=== PATIENT | female | born 1980 | race Caucasian/White ===

== ENCOUNTER 2018-03-09 21:10 | Emergency (ER) | payer BC ==
[2018-03-09 21:16] VITALS: BP 145/85; PULSE 90; TEMP 98.3; BMI 23.6
--- NOTE | 2018-03-09 22:10 | PDOC ---
History of Present Illness - General Chief Complaint: Sore Throat Stated Complaint: Sore Throat Time Seen by Provider: 03/09/18 21:34 History Source: Patient Exam Limitations: No Limitations - History of Present Illness Initial Comments: 03/09/18 22:08 HISTORY OF PRESENT ILLNESS: Is a 37-year-old woman without significant medical history presents emergency Department with sore throat for 2 days. Patient states she was seen in a clinic yesterday for the sore throat and told she had strep. She was placed on antibiotics but states that every time she receives oral antibiotics doesn't help but her strep throat. Patient is requesting Bicillin injection now. Patient reports subjective fevers. No recent travel or sick contacts. PAST MEDICAL HISTORY: Denies past medical history SURGICAL HISTORY: Denies ALLERGIES: No known drug allergies REVIEW OF SYSTEMS General/Constitutional: Subjective fever or chills. Denies weakness, weight change. HEENT: Denies change in vision. Denies ear pain or discharge. +sore throat. Cardiovascular: Denies chest pain or shortness of breath. Respiratory: Denies cough, wheezing, or hemoptysis. Gastrointestinal: Denies nausea, vomiting, diarrhea or constipation. Denies rectal bleeding. Genitourinary: Denies dysuria, frequency, or change in urination. Musculoskeletal: Denies joint or muscle swelling or pain. Denies neck or back pain. Skin and breasts: Denies rash or easy bruising. Neurologic: Denies headache, vertigo, loss of consciousness, or loss of sensation. Psychiatric: Denies depression or anxiety. Endocrine: Denies increased thirst. Denies abnormal weight change. Hematologic/Lymphatic: Denies anemia, easy bleeding, or history of blood clots. Allergic/Immunologic: Denies hives or skin allergy. Denies latex allergy. PHYSICAL EXAM General Appearance: Well-appearing, appropriately dressed. No apparent distress , no intoxication. HEENT: EOMI, PERRLA, Tonsillar erythema with exudates present, normal voice, TMs normal. No conjunctival pallor. No photophobia, scleral icterus. Neck: Supple. Trachea midline. No tenderness, rigidity, carotid bruit, stridor , lymphadenopathy, or thyromegaly. Respiratory/Chest: Lungs CTAB. No shortness of breath, chest tenderness, respiratory distress, accessory muscle use. No crackles, rales, rhonchi, stridor , wheezing, dullness Cardiovascular: RRR. S1, S2. No JVD, murmur, bradycardia, tachycardia. Vascular Pulses: Dorsalis-Pedis (R): 2+, Dorsalis-Pedis (L): 2+ Gastrointestinal/Abdominal: Normal bowel sounds. Abdomen soft, non-distended. No tenderness or rebound tenderness. No organomegaly, pulsatile mass, guarding, hernia, hepatomegaly, splenomegaly. Lymphatic: No adenopathy, tenderness. Musculoskeletal/Extremities: Normal inspection. FROM of all extremities, normal capillary refill. Pelvis Stable. No CVA tenderness. No tenderness to extremities, pedal edema, swelling, erythema or deformity. Integumentary: Appropriate color, dry, warm. No cyanosis, erythema, jaundice or rash Neurologic: inspector penetrant II-XII intact. Fully oriented, alert. Appropriate mood/affect. Motor strength 5/5. No appreciable EOM palsy, facial droop or sensory deficit. Past History - Past Medical History Allergies/Adverse Reactions: Allergies Allergy/AdvReac Type Severity Reaction Status Date / Time No Known Allergies Allergy Verified 03/09/18 21:16 Home Medications: Ambulatory Orders Amoxicillin - [Amoxicillin 250mg Capsule -] 250 mg PO TID 03/09/18 Ibuprofen [Motrin -] 400 mg PO QID 03/09/18 - Suicide/Smoking/Psychosocial Hx Smoking History: Never smoked Information on smoking cessation initiated: No Hx Alcohol Use: No Drug/Substance Use Hx: No *Physical Exam - Vital Signs Last Vital Signs Temp Pulse Resp BP Pulse Ox 98.3 F 90 20 145/85 99 03/09/18 21:14 03/09/18 21:14 03/09/18 21:14 03/09/18 21:14 03/09/18 21:14 Medical Decision Making - Medical Decision Making 03/09/18 22:25 A/P: 37-year-old female with sore throat for 2 days TMs clear bilaterally 2+ tonsil noted Pharyngeal erythema with tonsillar exudate present Tender anterior cervical lymphadenopathy Halitosis present Exam is consistent with a streptococcal pharyngitis. Rapid strep testing, treat pending results 03/09/18 22:39 Rapid strep testing is positive. I will treat the patient with Bicillin 1.2 million units IM now. I will hold patient here 20 minutes post injection and discharge home with has no reaction. Patient is agreement with this plan as was the plan she was seeking upon arrival. *DC/Admit/Observation/Transfer Diagnosis at time of Disposition: Strep pharyngitis - Discharge Dispostion Disposition: HOME Condition at time of disposition: Stable Decision to Admit order: No - Referrals - Patient Instructions Additional Instructions: Salt water garggles. Throw away your toothbrush in 3 days and start using a new toothbrush. No sharing of drinks, utensils or toothbrushes. Take Motrin as directed by song lyricist's instructions. Return to ED for worsening fevers, worsening sore throat, chest pain, shortness of breath or any other concerns. - Post Discharge Activity
[2018-03-09] MEDS ORDERED: PENICILLIN G BENZATHINE 1,200,000 UNIT/2 ML PFS IM ONE (22:34)
[2018-03-09] MEDS ORDERED: PENICILLIN G BENZATHINE 2,400,000 UNIT/4 ML PFS ONE (22:45)
== END 2018-03-09 23:12 | disposition home or self-care (01) ==
LOC: JERFT 21:10
DX: J02.0 Streptococcal pharyngitis (principal)
CPT/HCPCS: 87070; 87430; 96372; 99281-25

== ENCOUNTER 2018-08-15 13:52 | Emergency (ER) | payer BC ==
[2018-08-15 14:10] VITALS: BP 134/80; PULSE 61; TEMP 98.9; BMI 28.5
--- NOTE | 2018-08-15 15:44 | PDOC ---
History of Present Illness - General Chief Complaint: Sore Throat Stated Complaint: SORE THROAT Time Seen by Provider: 08/15/18 15:43 History Source: Patient Exam Limitations: No Limitations - History of Present Illness Initial Comments: 08/15/18 18:24 Patient is a 37-year-old female who presents to the ER for 2 days of sore throat. Patient states that it hurts to swallow. She has been taking over-the- counter ampicillin from the [facility] for the last 2 days. Denies fevers, chills, cough, earache, shortness of breath, difficulty breathing, nausea, vomiting and diarrhea. Past History - Travel Traveled outside of the country in the last 30 days: No Close contact w/someone who was outside of country & ill: No - Past Medical History Allergies/Adverse Reactions: Allergies Allergy/AdvReac Type Severity Reaction Status Date / Time No Known Allergies Allergy Verified 03/09/18 21:16 Home Medications: Ambulatory Orders Ampicillin Trihydrate 500 mg PO ASDIR 08/15/18 Methylprednisolone [Medrol Dose Miguel] 4 mg PO ASDIR #21 tablet 08/15/18 - Suicide/Smoking/Psychosocial Hx Smoking History: Never smoked Have you smoked in the past 12 months: No Information on smoking cessation initiated: No Hx Alcohol Use: No Drug/Substance Use Hx: No Review of Systems - Review of Systems Able to Perform ROS?: Yes Comments:: 08/15/18 17:23 CONSTITUTIONAL: Absent: fever, chills, diaphoresis, generalized weakness, malaise, loss of appetite HEENT: Present: sore throat Absent: rhinorrhea, nasal congestion, throat pain, throat swelling, difficulty swallowing, mouth swelling, ear pain, eye pain, visual Changes CARDIOVASCULAR: Absent: chest pain, loss of consciousness, palpitations, irregular heart rate, peripheral edema RESPIRATORY: Absent: cough, shortness of breath, dyspnea with exertion, orthopnea, wheezing, stridor, hemoptysis GASTROINTESTINAL: Absent: abdominal pain, abdominal distension, nausea, vomiting, diarrhea, constipation, melena, hematochezia GENITOURINARY: Absent: dysuria, frequency, urgency, hesitancy, hematuria, flank pain, genital pain MUSCULOSKELETAL: Absent: myalgia, arthralgia, joint swelling SKIN: Absent: rash, itching, pallor HEMATOLOGIC/IMMUNOLOGIC: Absent: easy bleeding, easy bruising, lymphadenopathy, frequent infections ENDOCRINE: Absent: unexplained weight gain, unexplained weight loss, heat intolerance, cold intolerance NEUROLOGIC: Absent: headache, focal weakness or paresthesias, dizziness, unsteady gait, seizure, mental status changes, bladder or bowel incontinence PSYCHIATRIC: Absent: anxiety, depression, suicidal or homicidal ideation, hallucinations. Is the patient limited Turkish proficient: No *Physical Exam - Vital Signs Last Vital Signs Temp Pulse Resp BP Pulse Ox 98.9 F 61 20 134/80 99 08/15/18 14:07 08/15/18 14:07 08/15/18 14:07 08/15/18 14:07 08/15/18 14:07 - Physical Exam Comments: 08/15/18 17:31 GENERAL: Well developed, well nourished. Awake and alert. No acute distress. HEENT: Normocephalic, atraumatic. PERRLA, EOMI. No conjunctival pallor. Sclera are non- icteric. Moist mucous membranes. Oropharynx is with erythema and exudates to the tonsils. Uvula is midline. No edema NECK: Supple. Full ROM. No JVD. Carotid pulses 2+ and symmetric, without bruits. No thyromegaly. No lymphadenopathy. CARDIOVASCULAR: Regular rate and rhythm. No murmurs, rubs, or gallops. Distal pulses are 2+ and symmetric. PULMONARY: No evidence of respiratory distress. Lungs clear to auscultation bilaterally. No wheezing, rales or rhonchi. SKIN: Warm and dry. Normal capillary refill. No rashes. No jaundice. NEUROLOGICAL: Alert, awake, appropriate. Cranial nerves 2-12 intact. No deficits to light touch and temperature in face, upper extremities and lower extremities. No motor deficits in the in face, upper extremities and lower extremities. Normoreflexic in the upper and lower extremities. Normal speech. Toes are down- going bilaterally. Gait is normal without ataxia. PSYCHIATRIC: Cooperative. Good eye contact. Appropriate mood and affect. Moderate Sedation - Procedure Monitoring Vital Signs: Procedure Monitoring Vital Signs Temperature 98.9 F 08/15/18 14:07 Pulse Rate 61 08/15/18 14:07 Respiratory Rate 20 08/15/18 14:07 Blood Pressure 134/80 08/15/18 14:07 O2 Sat by Pulse Oximetry (%) 99 08/15/18 14:07 Medical Decision Making - Medical Decision Making 08/15/18 18:25 Patient is a 37-year-old female who presents to the ER for sore throat for 2 days. Exudates and edema noted to the tonsils posteriorly. No edema uvula is midline. Rapid strep is negative. Most likely viral illness; however patient has been taking ampicillin so unsure of nature. We'll treat with Decadron Patient to follow-up with her primary care doctor. Discharge home I discussed the physical exam findings, ancillary test results and final diagnoses with the patient. I answered all of the patient's questions. The patient was satisfied with the care received and felt comfortable with the discharge plan and treatment plan. The Patient agrees to follow up with the primary care physician/specialist within 24-72 hours. Return precautions were given. *DC/Admit/Observation/Transfer Diagnosis at time of Disposition: Pharyngitis Qualifiers: Pharyngitis/tonsillitis etiology: unspecified etiology Qualified Code(s): J02.9 - Acute pharyngitis, unspecified - Discharge Dispostion Disposition: HOME Condition at time of disposition: Stable Decision to Admit order: No - Prescriptions Prescriptions: Methylprednisolone [Medrol Dose Miguel] 4 mg PO ASDIR #21 tablet - Referrals Referrals: Butch Torres MD [Staff Physician] - - Patient Instructions Printed Discharge Instructions: DI for Viral Pharyngitis Additional Instructions: You have a sore throat or pharyngitis. Rapid strep testing was negative today. You may take Motrin 600 mg every 6 hours as needed for pain. Please do warm water gargles and cough drops to help with your pain. Change your toothbrush when you started feeling better. Follow-up with your primary care doctor. Return to the ER for fever, difficulty breathing, difficulty swallowing, or if you have any changes in your symptoms. - Post Discharge Activity Forms/Work/School Notes: Back to Work
[2018-08-15] MEDS ORDERED: DEXAMETHASONE LIQUID 0.5 MG/5 ML 240 ML BULK BOTTLE PO ONE (17:17)
[2018-08-15] MEDS ORDERED: DEXAMETHASONE SOD PHOSPHATE 10 MG/1 ML VIAL ONE (17:18)
== END 2018-08-15 17:24 | disposition home or self-care (01) ==
LOC: JERFT 13:52
DX: J02.9 Acute pharyngitis, unspecified (principal)
CPT/HCPCS: 87070; 87880; 99281-25

== ENCOUNTER 2018-09-15 13:46 | Emergency (ER) | payer BC ==
[2018-09-15 13:49] VITALS: BP 110/73; PULSE 78; TEMP 98.4; BMI 26.6
--- NOTE | 2018-09-15 14:16 | PDOC ---
History of Present Illness - General Chief Complaint: Sore Throat Stated Complaint: SORE THROAT Time Seen by Provider: 09/15/18 13:53 History Source: Patient Exam Limitations: Clinical Condition - History of Present Illness Initial Comments: 09/15/18 14:15 Patient with no medical history present with complaint of three-day history of sore throat, painful to swallow and right anterior lymph node pain. Patient denies fever, chills, nausea or vomiting. Denies abdominal pain or any other symptoms. Patient did not take anything for symptoms. Timing/Duration: other (3 days) Past History - Past Medical History Allergies/Adverse Reactions: Allergies Allergy/AdvReac Type Severity Reaction Status Date / Time No Known Allergies Allergy Verified 09/15/18 13:49 Home Medications: Ambulatory Orders Ampicillin Trihydrate 500 mg PO ASDIR 08/15/18 Methylprednisolone [Medrol Dose Miguel] 4 mg PO ASDIR #21 tablet 08/15/18 Amox-Tr/K Cl [Augmentin - 875Mg Tablet] 1 tab PO BID #14 tablet 09/15/18 COPD: No - Suicide/Smoking/Psychosocial Hx Smoking History: Never smoked Have you smoked in the past 12 months: No Hx Alcohol Use: No Drug/Substance Use Hx: No Review of Systems - Review of Systems Able to Perform ROS?: Yes Is the patient limited Maltese proficient: No Constitutional: No: Chills, Fever, Malaise HEENTM: Yes: Symptoms Reported, See HPI, Throat Pain. No: Eye Pain, Blurred Vision, Tearing, Recent change in vision, Double Vision, Cataracts, Ear Pain, Ocular Prothesis, Ear Discharge, Nose Pain, Nose Congestion, Tinnitus, Nose Bleeding, Hearing Loss, Throat Swelling, Mouth Pain, Dental Problems, Difficulty Swallowing, Mouth Swelling, Other Respiratory: No: Symptoms reported, See HPI, Cough, Orthopnea, Shortness of Breath, SOB with Exertion, SOB at Rest, Stridor, Wheezing, Productive cough, Hemoptysis, Other Cardiac (ROS): No: Symptoms Reported, See HPI, Chest Pain, Edema, Irregular Heart Rate, Lightheadedness, Palpitations, Syncope, Chest Tightness, Other ABD/GI: Yes: See HPI. No: Constipated, Diarrhea, Nausea, Vomiting All Other Systems: Reviewed and Negative *Physical Exam - Vital Signs Last Vital Signs Temp Pulse Resp BP Pulse Ox 98.4 F 78 18 110/73 99 09/15/18 13:47 09/15/18 13:47 09/15/18 13:47 09/15/18 13:47 09/15/18 13:47 - Physical Exam Comments: 09/15/18 14:13 GENERAL: Well developed, well nourished. Awake and alert. No acute distress. HEENT: Mild pharyngeal erythema with white exudate to right tonsils. Normocephalic, atraumatic. PERRLA, EOMI. No conjunctival pallor. Sclera are non- icteric. Moist mucous membranes. NECK: Supple. Full ROM. CARDIOVASCULAR: Regular rate and rhythm. No murmurs, rubs, or gallops. Distal pulses are 2+ and symmetric. PULMONARY: No evidence of respiratory distress. Lungs clear to auscultation bilaterally. No wheezing, rales or rhonchi. ABDOMINAL: Soft. Non-tender. Non-distended. No rebound or guarding. No organomegaly. Normoactive bowel sounds. MUSCULOSKELETAL Normal range of motion at all joints. SKIN: Warm and dry. Normal capillary refill. No rashes. No jaundice. NEUROLOGICAL: Alert, awake, appropriate. Gait is normal without ataxia. PSYCHIATRIC: Cooperative. Good eye contact. Appropriate mood General Appearance: Yes: Nourished, Appropriately Dressed. No: Apparent Distress Moderate Sedation - Procedure Monitoring Vital Signs: Procedure Monitoring Vital Signs Temperature 98.4 F 09/15/18 13:47 Pulse Rate 78 09/15/18 13:47 Respiratory Rate 18 09/15/18 13:47 Blood Pressure 110/73 09/15/18 13:47 O2 Sat by Pulse Oximetry (%) 99 09/15/18 13:47 Medical Decision Making - Medical Decision Making 09/15/18 14:14 Patient with no sick Past medical history present with complaint of three-day history of sore throat, and painful to swallow. Patient denies fever or any other symptoms. Exam significant for mild pharyngeal erythema with white tonsillar exudates otherwise normal exam. Rapid strep ordered to rule out strep pharyngitis. Symptoms likely strep pharyngitis versus viral pharyngitis. 09/15/18 14:36 rapid strep negative however patient will still be treated for bacteria pharyngitis with Augmentin given pharyngeal erythema and tonsilar exudates *DC/Admit/Observation/Transfer Diagnosis at time of Disposition: Tonsillitis Pharyngitis Qualifiers: Pharyngitis/tonsillitis etiology: unspecified etiology Qualified Code(s): J02.9 - Acute pharyngitis, unspecified - Discharge Dispostion Disposition: HOME Condition at time of disposition: Stable Decision to Admit order: No - Prescriptions Prescriptions: Amox-Tr/K Cl [Augmentin - 875Mg Tablet] 1 tab PO BID #14 tablet - Referrals Referrals: Ady Lucas MD [Staff Physician] - - Patient Instructions Printed Discharge Instructions: DI for Pharyngitis/Tonsillopharyngitis -- Adult Additional Instructions: Take medications as prescribed. increase fluid intake. take motrin as needed for pain. Follow-up with referred ENT if no improvement in 3 days - Post Discharge Activity
[2018-09-15] MEDS ORDERED: IBUPROFEN 400 MG TABLET (FP) PO ONE (14:39)
[2018-09-15] MEDS ORDERED: KETOROLAC TROMETHAMINE 30 MG/1 ML VIAL IM ONE (14:41)
[2018-09-15] MEDS ORDERED: KETOROLAC TROMETHAMINE 30 MG/1 ML VIAL ONE (14:43)
== END 2018-09-15 14:48 | disposition home or self-care (01) ==
LOC: JERFT 13:46
DX: J03.90 Acute tonsillitis, unspecified (principal)
CPT/HCPCS: 87070; 87880; 99281-25

== ENCOUNTER 2018-09-17 13:20 | Emergency (ER) | payer BC ==
[2018-09-17 14:14] VITALS: BP 125/76; PULSE 69; TEMP 98.6; BMI 23.6
--- NOTE | 2018-09-17 14:14 | PDOC ---
Rapid Medical Evaluation Time Seen by Provider: 09/17/18 14:10 Medical Evaluation: Allergies Allergy/AdvReac Type Severity Reaction Status Date / Time No Known Allergies Allergy Verified 09/15/18 13:49 09/17/18 14:12 I have performed a brief in-person evaluation of this patient. The patient presents with a chief complaint of: sore throat x 5 days Pertinent physical exam findings: OP- mildly erythematous. Lungs CTAB. I have ordered the following: nothing The patient will proceed to the ED for further evaluation. 09/17/18 14:13 Discharge Disposition - Diagnosis Pharyngitis - Referrals - Patient Instructions - Post Discharge Activity
[2018-09-17] MEDS ORDERED: DEXAMETHASONE LIQUID 0.5 MG/5 ML 240 ML BULK BOTTLE PO ONE (15:07)
[2018-09-17] MEDS ORDERED: DEXAMETHASONE SOD PHOSPHATE 10 MG/1 ML VIAL ONE (15:13)
--- NOTE | 2018-09-17 15:14 | PDOC ---
History of Present Illness - General Chief Complaint: Sore Throat Stated Complaint: STREP THROAT Time Seen by Provider: 09/17/18 14:10 - History of Present Illness Initial Comments: 09/17/18 15:11 38-year-old female returns to the emergency room for further evaluation of her throat pain. She states she took the first tablet of amoxicillin last night and still has pain in her throat. Past History - Past Medical History Allergies/Adverse Reactions: Allergies Allergy/AdvReac Type Severity Reaction Status Date / Time No Known Allergies Allergy Verified 09/17/18 14:16 Home Medications: Ambulatory Orders Amox-Tr/K Cl [Augmentin - 875Mg Tablet] 1 tab PO BID 09/17/18 COPD: No - Suicide/Smoking/Psychosocial Hx Smoking History: Never smoked Have you smoked in the past 12 months: No Hx Alcohol Use: No Drug/Substance Use Hx: No Review of Systems - Review of Systems HEENTM: Yes: Throat Pain, Difficulty Swallowing *Physical Exam - Vital Signs Last Vital Signs Temp Pulse Resp BP Pulse Ox 98.6 F 69 18 125/76 99 09/17/18 14:11 09/17/18 14:11 09/17/18 14:11 09/17/18 14:11 09/17/18 14:11 - Physical Exam Comments: 09/17/18 15:12 HEAD: NC/AT EYES: Conjuntiva clear Ears: Canals and TM's normal NOSE: No d/c THROAT: Moist mucous membrances, oral pharanx erythemic with an ulcerative lesion on the right tonsil uvula midline NECK: Supple without adenopathy CARDIAC: S1 S2 LUNGS: CTA Full and Equal breath sounds ABDOMEN: Soft NT ND MS: Full ROM in all joints without edema NEUROLOGIC: No gross sensory or motor deficits, NVID SKIN: Normal color and temperature no lesions or rashes Moderate Sedation - Procedure Monitoring Vital Signs: Procedure Monitoring Vital Signs Temperature 98.6 F 09/17/18 14:11 Pulse Rate 69 09/17/18 14:11 Respiratory Rate 18 09/17/18 14:11 Blood Pressure 125/76 09/17/18 14:11 O2 Sat by Pulse Oximetry (%) 99 09/17/18 14:11 Medical Decision Making - Medical Decision Making 09/17/18 15:12 Rapid strep from last visit as well as culture has have been final and are negative for strep. This is a concerning examination with an ulcerative lesion on the right tonsil. I will refer her to ENT and give her dose of Decadron in the emergency room for her pain. I've instructed her to continue the antibiotics for now. *DC/Admit/Observation/Transfer Diagnosis at time of Disposition: Pharyngitis - Discharge Dispostion Disposition: HOME Condition at time of disposition: Stable Decision to Admit order: No - Referrals Referrals: Ady Lucas MD [Staff Physician] - - Patient Instructions Printed Discharge Instructions: Sore Throat Additional Instructions: Continue the antibiotics for now. He will given a dose of a long-acting steroid which will help with your pain. Please follow-up with ear nose and throat doctor in 1-2 days for further evaluation and treatment options. Return to the emergency room for worsening symptoms. - Post Discharge Activity
== END 2018-09-17 15:33 | disposition home or self-care (01) ==
LOC: JERFT 13:20
DX: J02.9 Acute pharyngitis, unspecified (principal)
CPT/HCPCS: 99281-25

== ENCOUNTER 2018-11-29 14:12 | Emergency (ER) | payer BC ==
[2018-11-29 14:21] VITALS: BP 124/82; PULSE 72; TEMP 98.1; BMI 23.3
--- NOTE | 2018-11-29 14:22 | PDOC ---
Rapid Medical Evaluation Time Seen by Provider: 11/29/18 14:19 Medical Evaluation: Allergies Allergy/AdvReac Type Severity Reaction Status Date / Time No Known Allergies Allergy Verified 09/17/18 14:16 11/29/18 14:19 I have performed a brief in-person evaluation of this patient. The patient presents with a chief complaint of: sore throat x 2 days, +fever, cough, denies N/V Pertinent physical exam findings: non toxic, exudate to left tonsil I have ordered the following: strep The patient will proceed to the ED for further evaluation.
[2018-11-29] MEDS ORDERED: IBUPROFEN 400 MG TABLET (FP) PO ONE ×2 (15:14→15:25)
--- NOTE | 2018-11-29 15:31 | PDOC ---
History of Present Illness - General Chief Complaint: Sore Throat Stated Complaint: SORE THROAT Time Seen by Provider: 11/29/18 14:19 History Source: Patient Exam Limitations: No Limitations - History of Present Illness Initial Comments: 11/29/18 16:07 Came for evaluation of sore throat pain 3 days. States felt feverish and chills but did not take temperature. Has no fever today but states is difficult to swallow. Timing/Duration: reports: getting worse Severity: reports: mild, moderate Associated Symptoms: reports: fever/chills, nasal congestion, nasal drainage, sore throat Past History - Travel Traveled outside of the country in the last 30 days: No Close contact w/someone who was outside of country & ill: No - Past Medical History Allergies/Adverse Reactions: Allergies Allergy/AdvReac Type Severity Reaction Status Date / Time No Known Allergies Allergy Verified 11/29/18 14:21 Home Medications: Ambulatory Orders Ibuprofen 400 mg PO Q6H PRN #30 tablet 11/29/18 COPD: No - Suicide/Smoking/Psychosocial Hx Smoking History: Never smoked Have you smoked in the past 12 months: No Hx Alcohol Use: No Drug/Substance Use Hx: No Review of Systems - Review of Systems Able to Perform ROS?: Yes Is the patient limited Yakut proficient: Yes Constitutional: Yes: Symptoms Reported, See HPI, Chills, Fever, Loss of Appetite , Malaise HEENTM: Yes: Symptoms Reported, See HPI, Nose Congestion, Throat Pain, Difficulty Swallowing Respiratory: Yes: Symptoms reported, See HPI, Cough Musculoskeletal: Yes: Symptoms Reported, Muscle Pain Integumentary: No: Symptoms Reported Neurological: Yes: Symptoms reported, See HPI, Headache Endocrine: No: Symptoms Reported All Other Systems: Reviewed and Negative *Physical Exam - Vital Signs Last Vital Signs Temp Pulse Resp BP Pulse Ox 98.1 F 72 17 124/82 99 11/29/18 14:19 11/29/18 14:19 11/29/18 14:19 11/29/18 14:19 11/29/18 14:19 - Physical Exam General Appearance: Yes: Nourished, Appropriately Dressed, Apparent Distress, Mild Distress HEENT: positive: STACIA, Normal ENT Inspection, TMs Normal, Pharyngeal Erythema, Tonsillar Exudate, Nasal Congestion, Rhinorrhea. negative: Pharynx Normal Neck: positive: Supple, Lymphadenopathy (R), Lymphadenopathy (L). negative: Tender Respiratory/Chest: positive: Lungs Clear, Normal Breath Sounds. negative: Chest Tender Gastrointestinal/Abdominal: positive: Soft. 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, Alert, Normal Mood/ Affect, Normal Response, Motor Strength 5/5 Progress Note - Progress Note Progress Note: Rapid strep NEGATIVE, MonoScreen: *DC/Admit/Observation/Transfer Diagnosis at time of Disposition: Pharyngitis Qualifiers: Pharyngitis/tonsillitis etiology: unspecified etiology Qualified Code(s): J02.9 - Acute pharyngitis, unspecified - Discharge Dispostion Disposition: HOME Condition at time of disposition: Stable Decision to Admit order: No - Referrals Referrals: ON STAFF,NOT [Primary Care Provider] - - Patient Instructions Additional Instructions: Rest, drink lots of fluids: Teas, water, soups, Pedialyte Saltwater gargles Steamy showers/seem to face break up mucus Avoid contact with others until fevers and cough resolved Lots of handwashing and good hygiene Continue [id number] medications for symptomatic relief Tylenol or Motrin for fever and pain Followup with private physician in one to 2 days as needed Return to emergency department for worsened symptoms, fevers, dehydration [place] test was negative, rapid beta-hemolytic a strep was negative today Call on Sunday [phone] for results of microbiology. If strep is isolated on culture antibiotics will be prescribed - Post Discharge Activity Forms/Work/School Notes: Back to Work
== END 2018-11-29 16:11 | disposition home or self-care (01) ==
LOC: JERFT 14:12
DX: J02.9 Acute pharyngitis, unspecified (principal)
CPT/HCPCS: 36415; 86308; 87070; 87880; 99281-25